=== PATIENT | female | born 1960 | race Caucasian/White ===

== ENCOUNTER → 2017-01-03 | Outpatient (CLI) | payer OTHER ==
[~2017-01-03] MED LIST: CELECOXIB200 M1 PO; FOLIC ACID PO; HYDROCODON-ACE1 EAC7 PO; KLONOPIN0.5 M3 PO; LEXAPRO20 MG PO; PRAMIPEXOLE DI0.5 MG PO; VITAMIN B12
--- NOTE | ~2017-01-03 | EKG ---
PATIENT: ADAMS BARBER UNIT #: [id number] Ventricular Rate: 69 BPM Atrial Rate: 69 BPM P-R Interval: 110 ms QRS Duration: 84 ms Q-T Interval: 402 ms QTC Calculation(Bezet): 430 ms P [place]: 34 degrees Calculated R [place]: 41 degrees Calculated T [place]: 50 degrees Diagnosis Line: Sinus rhythm with short [place] Diagnosis Line: Otherwise normal ECG Diagnosis Line: No previous ECGs available Diagnosis Line: Confirmed by ADRYAN BALDWIN MD ([id number]) on 01/04/2017 Diagnosis Line: 8:01:56 PM INTERPRETING MD: DENNY HERNANDEZ
[2017-01-03 12:24] LABS: HEMATOCRIT 41.9 % (35.0-45.0); HEMOGLOBIN 13.4 gm/dL (12.0-16.0); MEAN CELL VOLUME 92.4 FL (83-96); MEAN CORPUSCULAR HEMOGLOBIN 29.6 PG (28-34); RED BLOOD COUNT 4.54 X10e (3.90-5.30); RED CELL DISTRIBUTION WIDTH 13.5 % (11.0-15.5); WHITE BLOOD COUNT 9.7 X10e3 (4.0-10.5)
[2017-01-03 13:24] LABS: ALBUMIN SERUM 4.1 g/dL (3.5-5.0); BILIRUBIN,TOTAL 0.5 mg/dL (0.2-2.0); BUN/CREATININE RATIO 16.25; CALCIUM SERUM 8.9 mg/dL (8.4-10.2); CREATININE SERUM 0.8 mg/dL (0.6-1.4); GLOM FILT RATE Estimated 82.5 mL/min (>60); POTASSIUM 4.1 mmol/L (3.5-5.1); PROTEIN TOTAL SERUM 6.8 g/dL (6.0-8.3)
== END | disposition home or self-care (01) ==
LOC: CAMB 11:54
PROVIDERS: Specialist
DX: Z01.818 Encounter for other preprocedural examination (principal); K43.2 Incisional hernia without obstruction or gangrene
CPT/HCPCS: 36415; 80053; 85027; 93005